=== PATIENT | male | born 1965 | race Caucasian/White ===

== ENCOUNTER 2022-03-22 14:20 | Emergency (ER) | payer BC, SELFPAY ==
[2022-03-22 14:31] VITALS: BP 137/98; PULSE 100; RESP 20; TEMP 37; O2SAT 100
--- NOTE | 2022-03-22 14:33 | ED.WOUNDLAC ---
HPI - Wound/Laceration General Chief Complaint: Wound/Laceration Stated Complaint: laceration behind right ear Time Seen by Provider: 03/22/22 14:32 Source: patient Mode of arrival: ambulatory Limitations: no limitations History of Present Illness HPI narrative: Leander is a 57-year-old male patient presenting to clinic today with complaints of a laceration behind his right ear. He reports he was having a night terror this morning and fell out of bed and hit his right ear on the corner of the night stand and this caused it to be cut. He denies any loss of consciousness or neck pain Related Data Home Medications Medication Instructions Recorded Confirmed omega-3 fatty acids 1,000 mg 1,000 mg PO DAILY 02/14/21 03/22/22 capsule (Fish Oil Concentrate) Allergies Allergy/AdvReac Type Severity Reaction Status Date / Time No Known Allergies Allergy Verified 03/22/22 14:37 Review of Systems Review of Systems: Pertinent positives per HPI. Patient denies any fever, chills, rash, headache, visual changes, dizziness, cough, runny nose, sore throat, shortness of breath, chest pain, palpitations, nausea, vomiting, diarrhea, constipation, abdominal pain, or any urinary issues. [facility] Past Medical History Medical History Anxiety FH: colonic polyps FH: diabetes mellitus Hyperlipidemia, unspecified Hypertension Family History Family History Mother Alzheimer disease Hypertension Father Alcoholism Manic depressive illness Parkinson disease Sibling Patient's brother is in good health Other Diabetes mellitus Social History Social History Smoking status: Never smoker Second hand tobacco smoke exposure: No Alcohol intake: current Drinks per week: 3 Substance use: never Substance use type: does not use Lack of Transportation: No Lack of Food: Never True Current Housing: I Have Housing Concerned About Future Housing: No Difficulty Paying Gas/Electric Bills: No Difficulty Paying for Meds: No Currently Unemployed: No Education: Bachelor's Degree Difficulty w/ Childcare or Family Care: No 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 There is no relevant family history pertinent to the patient complaint. Exam Narrative: General: Well-developed, well nourished, in no apparent distress Head: Normocephalic, atraumatic. Cardio: Regular rate and rhythm, s1 and s2 normal, no murmur appreciated. Resp: Clear to auscultation bilaterally, no rhonchi, rales, wheezing or rubs. Integumentary: [employer], warm, and dry, intact without lesion, 2 cm gaping laceration to the right posterior ear lobe. Bleeding Course Course Emergency Course: Portions of this record may have been created with voice recognition software. Level of Care: Express Care Visit Vital Signs Vital signs: Vital Signs Temperature 37.0 C 03/22/22 14:31 Pulse Rate 100 03/22/22 14:31 Respiratory Rate 20 03/22/22 14:31 Blood Pressure 137/98 H 03/22/22 14:31 Pulse Oximetry 100 03/22/22 14:31 Temperature 37.0 C 03/22/22 14:31 Pulse Rate 100 03/22/22 14:31 Respiratory Rate 20 03/22/22 14:31 Blood Pressure 137/98 H 03/22/22 14:31 Pulse Oximetry 100 03/22/22 14:31 Vital signs reviewed Discharge Plan Discharge Clinical Impression: Ear lobe laceration Patient Disposition: Home, Self-Care Condition: Stable Instructions: Antibiotic Form, Care For Your Stitches (ED), Laceration (ED) Additional Instructions: Take Keflex as prescrib
[2022-03-22] MEDS: LIDOCAINE, EPINEPHRINE, TETRACAINE VISCOUS SOLN 3 ML TOPICAL (14:36)
[2022-03-22] MEDS: TETANUS,DIPHTHERIA,AC PERTUSSIS ADULT (0.5 ML) BOOSTRIX IM (14:46)
== END 2022-03-22 15:57 | disposition home or self-care (01) ==
PROVIDERS: Emergency Provider Nurse Practitioner Family; PCP Family Medicine
DX: S01.311A Laceration without foreign body of right ear, initial encounter (principal); W06.XXXA Fall from bed, initial encounter; Z23 Encounter for immunization; E78.5 Hyperlipidemia, unspecified; I10 Essential (primary) hypertension
CPT/HCPCS: 12013; 90471; 90715; 99213; G0463

== ENCOUNTER 2022-12-13 03:34 | Emergency (ER) | payer BC, SELFPAY ==
[2022-12-13] VITALS (10 sets, daily range): BP systolic 133–160; BP diastolic 89–97; PULSE 54–65; RESP 12–23; TEMP 36.1; O2SAT 95–100
--- NOTE | ~2022-12-13 | CT_ITS ---
EXAMINATION: CT abdomen pelvis w con DATE: 12/13/2022 04:51 INDICATION: Right abdominal pain. TECHNIQUE: Computed tomography (CT) of the abdomen and pelvis was performed with 100 mL Omnipaque 350 intravenous contrast. Automated exposure control and iterative reconstruction technique were employe d. The dose-length product was 462.92 mGy-cm. COMPARISON: None. FINDINGS: The visualized portions of the lung bases demonstrate mild atelectasis. No pleural effusion . There are 5 mm and 3 mm nodules in left lower lobe, likely benign. A calcified left lung nodule is consistent with old granulomatous disease. The heart size is normal. No pericardial effusion. The juancho er demonstrates periportal edema. The gallbladder is distended and contains gallstones. Gallbladder w all thickening is noted. The spleen, pancreas, and adrenal glands are normal. There are cysts in the kidneys measuring up to 1.8 cm on the right. There is a 2 mm stone in right kidney. The prostate is m oderately enlarged. There are bilateral inguinal hernias containing fat. There are no dilated loops o f bowel. The appendix is not visualized. There are no pathologically enlarged lymph nodes. There is n o free intraperitoneal fluid. There is severe lumbar spondylosis. Lumbar levoscoliosis is noted. IMPRESSION: 1. Acute cholecystitis. Reviewed, dictated and finalized at location E. IMPRESSION: 1. Acute cholecystitis.
[2022-12-13] MEDS: SODIUM CHLORIDE 0.9% IV 1,000 ML 999 ML IV CONT (04:06)
[2022-12-13] MEDS: HYDROmorphone HCL INJ (*CRX) 1 MG/ML SYR IV PUSH (04:08)
[2022-12-13] MEDS: ONDANSETRON INJ 4 MG/2 ML VIAL IV PUSH (04:08)
[2022-12-13 04:21] LABS: Basophils Percent Auto 0.6 % (0.2-1.2); Eosinophils Absolute Auto 0.3 K/mm3 (0-0.3); Eosinophils Percent Auto 3.7 % (0-4.4); Hematocrit 45.5 % (42.0-52.0); Hemoglobin 15.5 g/dL (14.0-18.0); Immature Granulocyte Absolute 0.04 K/mm3 (0.00-0.031); Immature Granulocyte Percent A 0.6 % (0-0.5); Lymphocytes Absolute Auto 1.03 K/mm3 (0.9-3.2); Lymphocytes Percent Auto 15.3 % (18.3-44.2); Mean Corpuscular HGB Conc 34.1 g/dl (32-36); Mean Corpuscular Hemoglobin 31.9 pg (26-34); Mean Corpuscular Volume 93.6 fl (80-100); Mean Platelet Volume 12.2 fl (7.4-10.4); Monocytes Absolute Auto 0.6 K/mm3 (0.1-0.6); Monocytes Percent Auto 8.3 % (2.6-8.5); Neutrophils Absolute Auto 4.8 K/mm3 (1.3-6.7); Neutrophils Percent Auto 71.5 % (45.5-73.1); Platelet Count Result 133 k/mm3 (150-375); Red Blood Count 4.86 M/mm3 (4.6-6.20); Red Cell Distribution Width 12.1 % (11.5-14.5); White Blood Count 6.7 K/mm3 (4.5-10.0)
[2022-12-13 04:28] LABS: Alanine Aminotransferase 34 U/L (6-50); Albumin Level 4.1 g/dL (3.5-5.1); Alkaline Phosphatase 70 U/L (38-126); Anion Gap 4 mmol/L (8-16); Aspartate Amino Transferase 41 U/L (17-59); Bilirubin,Total 0.5 mg/dL (0.2-1.3); Blood Urea Nitrogen 15 mg/dL (9-20); Calcium 8.5 mg/dL (8.4-10.2); Carbon Dioxide 29 mmol/L (22-30); Chloride 101 mmol/L (98-107); Estimated CRCL calculation 79 ml/min; Estimated Glomerular Filt Rate > 60; Glucose 162 mg/dL (65-110); Lipase 41 U/L (23-300); Potassium 3.8 mmol/L (3.4-5.0); Sodium 134 mmol/L (137-145)
--- NOTE | 2022-12-13 05:03 | ED.GENADULT ---
HPI - General Adult General Chief complaint: Abdominal Pain Stated complaint: Right sided abd pain Time Seen by Provider: 12/13/22 04:00 History of Present Illness HPI narrative: Patient is a 57-year-old gentleman who presents the emergency department with chief complaint of abdominal pain. Patient reports this [facility]os and a couple beers patient reports he was feeling okay went home and woke up with severe pain in the right upper quadrant patient states the pain does radiate to the back reports has had no improvement in the symptoms. The patient reports no prior intra-abdominal surgeries Related Data Home Medications Medication Instructions Recorded Confirmed omega-3 fatty acids 1,000 mg 1,000 mg PO DAILY 02/14/21 07/31/22 capsule (Fish Oil Concentrate) Allergies Allergy/AdvReac Type Severity Reaction Status Date / Time morphine AdvReac Nausea and Verified 12/13/22 03:46 Vomiting Review of Systems Review of Systems: A 10 system review of systems was completed on the patient and is negative except for what is stated in the HPI. Nursing and ancillary documentation was reviewed. [facility] Past Medical History Medical History (Updated 12/13/22 @ 06:13 by Jose Luis Medina MD) Anxiety FH: colonic polyps FH: diabetes mellitus Hyperlipidemia, unspecified Hypertension Family History Family History Mother Alzheimer disease Hypertension Father Alcoholism Manic depressive illness Parkinson disease Sibling Patient's brother is in good health Other Diabetes mellitus Social History Social History Smoking status: Never smoker Second hand tobacco smoke exposure: No Alcohol intake: current Drinks per week: 3 Substance use: never Substance use type: does not use Lack of Transportation: No Lack of Food: Never True Current Housing: I Have Housing Concerned About Future Housing: No Difficulty Paying Gas/Electric Bills: No Difficulty Paying for Meds: No Currently Unemployed: No Education: Bachelor's Degree Difficulty w/ Childcare or Family Care: No Living arrangements: with family Occupation/Education: occupation Additional occupation/education comments: [employer] Gender identity (if verbalized by the patient): Male Spiritual care concerns: No Agree to blood products: Yes Exam Narrative: GENERAL: Well-appearing, well-nourished, and in no acute distress. HEAD: Normocephalic, atraumatic. EYES: PERRLA and EOMI. ENT: Nares clear, no rhinorrhea or epistaxis. Mucous membranes moist. NECK: Supple. CHEST: Clear to auscultation. No respiratory distress. HEART: Regular rate and rhythm. No murmur heard. Normal peripheral pulses. ABDOMEN: Soft, tenderness to palpation of the right upper quadrant nondistended, normal active bowel sounds. EXTREMITIES: Normal range of motion. No edema. SKIN: Warm, dry, no rash. NEURO: No focal deficits. Alert and oriented x3. PSYCH: Normal mood and affect. Course Vital Signs Vital signs: Vital Signs Temperature 36.1 C L 12/13/22 03:38 Pulse Rate 61 12/13/22 03:38 Respiratory Rate 19 12/13/22 03:38 Blood Pressure 160/97 H 12/13/22 03:38 Pulse Oximetry 100 12/13/22 03:38 Oxygen Delivery Room Air 12/13/22 03:38 Temperature 36.1 C L 12/13/22 03:38 Pulse Rate 61 12/13/22 05:45 Respiratory Rate 13 12/13/22 05:45 Blood Pressure 133/89 12/13/22 04:31 Pulse Oximetry 96 12/13/22 05:45 Oxygen Delivery Room Air 12/13/22 03:38 Medical Decision Making [facility] Narrative Medical decision making narrative: Differential diagnosis includes acute cholecystitis, cholelithiasis, biliary colic, appendicitis, diverticulitis, colitis CT scan of the abdomen pelvis showed evidence of thickening of th
== END 2022-12-13 06:27 | disposition home or self-care (01) ==
PROVIDERS: Emergency Provider Emergency Medicine; PCP Family Medicine
DX: K80.42 Calculus of bile duct with acute cholecystitis without obstruction (principal); I10 Essential (primary) hypertension; E78.5 Hyperlipidemia, unspecified; F41.9 Anxiety disorder, unspecified
CPT/HCPCS: 36415; 74177; 80053; 83690; 85025; 96361; 96374; 96375; 99284; J1170; J2405; J7030; Q9967

== ENCOUNTER 2023-01-04 09:34 | Outpatient (CLI) | payer BC, SELFPAY ==
--- NOTE | 2023-01-04 09:45 | ECG_ITS ---
Measurements Intervals [place] Rate: 58 P: 53 VT: 133 QRS: 35 QRSD: 112 T: 40 QT: 408 QTc: 402 Interpretive Statements SINUS BRADYCARDIA INTRAVENTRICULAR CONDUCTION DELAY BASELINE ARTIFACT- I, II, III, AVR, AVL, AVF BORDERLINE ECG NO PREVIOUS ECG AVAILABLE FOR COMPARISON Electronically Signed On 01-04-2023 13:13:11 CDT by Obinna Augustin D.O.
[2023-01-04 10:44] LABS: Alanine Aminotransferase 71 U/L (6-50); Albumin Level 4.1 g/dL (3.5-5.1); Alkaline Phosphatase 71 U/L (38-126); Amylase 125 U/L (30-110); Aspartate Amino Transferase 59 U/L (17-59); Bilirubin,Total 0.5 mg/dL (0.2-1.3); Lipase 138 U/L (23-300)
== END 2023-01-04 09:35 | disposition home or self-care (01) ==
PROVIDERS: PCP Family Medicine; Visit Provider Surgery
DX: K80.00 Calculus of gallbladder with acute cholecystitis without obstruction (principal); I10 Essential (primary) hypertension; Z01.818 Encounter for other preprocedural examination; I45.9 Conduction disorder, unspecified
CPT/HCPCS: 36415; 80076; 82150; 83690; 86850; 86900; 86901; 93005

== ENCOUNTER 2023-01-06 02:31 | Day surgery (SDC) | payer BC, SELFPAY ==
--- NOTE | 2023-01-04 08:51 | SUR.PREOP ---
Report to the Outpatient Waiting Room, entrance under the green pavilion located off [facility], at time 0830 on date 01/06/2023. Planned Procedure Time: 1030. Time changes happen often and if your time is changed the preop area will call you the afternoon before. - You and your visitor will be asked to self-screen and do not enter if you have any COVID symptoms. - A mask is optional within the hospital at this time. Patients may have clear liquids (water, carbonated beverages, clear teas, apple juice) until 3 hours prior to surgery with a maximum of 20 ounces. - NO CLEAR LIQUIDS AFTER 0730 - No food from midnight until time of surgery - Infants may have breast milk until 4 hours before surgery, infant formula 6 hours prior to surgery. - Children will be allowed to drink immediately following surgery. If applicable, please bring a bottle or sippy cup to assist with drinking. Juice, water, soda, and popsicles are readily available. For infants on formula, please bring formula the day of surgery. Pacifiers are allowed. Take the following medications with a SIP of water the morning of surgery: CLONAZEPAM, VENLAFAXINE DO NOT STOP ANY OF YOUR OTHER PRESCRIPTION MEDICATIONS PRIOR TO SURGERY ?EXCEPT THE FOLLOWING Medications to discontinue per physician STOP FISH OIL 01/04/23 Please no make-up, nail syriac, hairspray, perfume, deodorant, or body powder the day of surgery. No jewelry (including any body piercings) or valuables the day of surgery, leave them at home. Please take a shower or bath the night before, or the morning of, surgery with HIBICLENS soap. Wear comfortable, loose fitting clothing. Children are encouraged to wear pajamas. - Jewelry must be removed prior to entering the operating room. Rings and piercings that are not removed may be cut off. - The hospital will not accept responsibility for valuables. - Please leave all valuables, including medications, at home the day of surgery. If you are going home after surgery, a licensed fuel truck driver must drive you home. - NO public transportation without another adult if you receive anesthesia. - We recommend that an adult stay with you for 24 hours following discharge. - We also recommend that you do not drive, make important decision, drink alcoholic beverages, or take any drugs that were not prescribed by your health care provider for at least 24 hours after your discharge time. For Pediatric surgeries, we recommend two adults accompany the child home. Follow any additional instructions given to you from your surgeon. If you or anyone in your household have experienced Covid symptoms in the past week, please notify your surgeon or the nurse liaison at the phone number below for possible testing. Telephone instructions given to YORDY CARROLL and asked if any additional questions and then verbalized understanding. Patient advised to call surgeon office or pre surgery nurse liaison [phone] if any additional questions.
[2023-01-04 09:07] VITALS: BMI 22.4
--- NOTE | 2023-01-05 20:39 | P.PNAN_ITS ---
Anes - Initial Pre Proc Eval Procedure: Operation Date: 01/06/23 10:30 Proposed Procedures p Laparoscopic Cholecystectomy - Ray Metzger MD Date/Time: 01/05/23 20:39 Surgeon: Ray Metzger MD Pre Op Diagnosis: cholecystitis with calculous Patient Data Age: 57 Gender: M Height: 1.83 m Weight: 75 kg Allergies Allergy/AdvReac Type Severity Reaction Status Date / Time morphine AdvReac Nausea and Verified 01/04/23 08:40 Vomiting Home Medications Medication Instructions Recorded Confirmed Type omega-3 fatty acids 1,000 mg 2,000 mg PO DAILY 02/14/21 01/04/23 History capsule (Fish Oil Concentrate) clonazepam 1 mg tablet 1 mg PO BID PRN anxiety #60 tabs 12/17/22 01/04/23 Rx metoprolol succinate 25 mg 12.5 mg PO HS 01/04/23 01/04/23 History tablet,extended release 24 hr venlafaxine 150 mg 150 mg PO DAILY 01/04/23 01/04/23 History capsule,extended release 24 hr Patient hx anesthesia problems: none Family hx anesthesia problems: none Results Review: All pre-operative results and documents have been reviewed as part of the pre- operative evaluation. [facility] Past Medical History Medical History (Updated 12/31/22 @ 11:33 by Ruthann Bustamante) Anxiety FH: colonic polyps FH: diabetes mellitus Hyperlipidemia, unspecified Hypertension Surgical History Surgical History (Updated 12/31/22 @ 10:30 by Payton Ball MA) History of repair of ACL 1987 at [facility] Family History Family History Mother Alzheimer disease Hypertension Father Alcoholism Manic depressive illness Parkinson disease Sibling Patient's brother is in good health Other Diabetes mellitus Social History Social History Smoking status: Never smoker Second hand tobacco smoke exposure: No Substance use: never Substance use type: does not use Lack of Transportation: No Lack of Food: Never True Current Housing: I Have Housing Concerned About Future Housing: No Difficulty Paying Gas/Electric Bills: No Difficulty Paying for Meds: No Currently Unemployed: No Education: Bachelor's Degree Difficulty w/ Childcare or Family Care: No Living arrangements: with family Occupation/Education: occupation 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 Informed Consent: The patient's anesthetic plan and its attendant risks and benefits were discussed with the patient/family/POA. Questions were solicited and answers provided to the satisfaction of the patient/family/POA.
[2023-01-06] VITALS (8 sets, daily range): BP systolic 120–146; BP diastolic 70–94; PULSE 60–85; RESP 12–16; TEMP 36.6–36.8; O2SAT 100
--- NOTE | 2023-01-06 08:47 | WPDHPUPDATE1 ---
History and Physical Update Update Date/Time: 01/06/23 08:47 History and Physical has been reviewed, including an updated exam of the patient. There are NO changes in the patient's condition. Risks, benefits, and alternatives have been discussed and questions answered. Patient agrees to proceed with procedure.
[2023-01-06] MEDS: KETOROLAC 15 MG/ML VIAL (*BKC) IV PUSH (10:00)
[2023-01-06] MEDS: LACTATED RINGERS 1,000 ML 30 ML IV CONT ×2 (10:00→12:29)
[2023-01-06] MEDS: ACETAMINOPHEN 500 MG TABLET 1000 MG PO (10:00)
[2023-01-06] MEDS: ceFAZolin 2 GM/D5W 50 ML 2 GM/50 ML BAG IVPB (10:58)
[2023-01-06] MEDS: BUPIVACAINE/EPINEPHRINE 0.5% 50 ML VIAL INFILTRATE (11:39)
--- NOTE | 2023-01-06 12:41 | W.PM.PROC2 ---
Procedure Note - Detailed Date of Procedure 01/06/23 Pre-op Diagnosis cholecystitis with calculous Post-op Diagnosis Same Procedure Performed Laparoscopic cholecystectomy Surgeon Ray Metzger MD Threat Monitoring Analyst HAILEY Fritz Anesthesia General and Local Indications Patient had developed right upper quadrant abdominal pain that radiated through to his back after a fatty meal. He went to the emergency room and imaging showed gallstones and evidence of cholecystitis. He was seen in the office and has agreed to proceed with laparoscopic cholecystectomy. Findings Chronic inflammation and multiple gallstones, no biliary ductal dilatation, no liver abnormalities. Description of Procedure Patient was taken to surgery and induced into general anesthesia. The abdomen is prepped and draped. Local was infiltrated in the epigastric area. Incision was made and the varies needle was introduced. Saline drop technique was used and then insufflation was started. The abdomen insufflated adequately and then we placed an applied Medical optical 5 mm trocar into the abdomen. No evidence of intra-abdominal injury was seen. The remaining trocars were then placed in similar fashion but under direct visualization. The gallbladder was decompressed with a laparoscopic aspirator. It had many gallstones within it. The cholecystotomy was closed with a Vicryl endoloop. The gallbladder was then retracted anterosuperiorly. Dissection was carried out in the cholecystohepatic triangle. The cystic duct and cystic artery were carefully dissected. The gallbladder was dissected off the liver at its lower 3rd. Critical view was achieved. We then securely clipped and divided the cystic artery and cystic duct. The gallbladder was then further dissected free of its attachments to the liver. Cautery was used for hemostasis. Eventually the gallbladder was completely freed from the liver. It was placed in an Endo-Catch bag. I had had to enlarge the epigastric trocar slightly to accommodate the gallbladder with its multiple stones. Once the gallbladder was removed, we replaced the epigastric trocar and occluded the rest of the incision with a towel clip. CO2 insufflation was then able to proceed. We reviewed the gallbladder fossa and right upper quadrant. Some additional cautery was used. We irrigated the area thoroughly. All looked good with no evidence of bleeding or bile leakage. We then evacuated CO2 and removed the trocar sleeves. The fascia at the epigastric port was closed with interrupted 0 Vicryl suture. The subcutaneous was closed with 3-0 Vicryl suture. All skin wounds were closed with subcuticular 4-0 Monocryl skin suture. The wounds were dressed with Exofin surgical adhesive. Patient was then awakened and taken to recovery in good condition. Sponge and needle counts were correct x2. Estimated Blood Loss -10 Drains No Packing No Pathology Yes (Gallbladder) Complications No immediate complications Condition Stable Disposition PACU [facility] Billing Surgery - Charge Forward: Surgery Billing (Laparoscopic cholecystectomy)
[2023-01-06] MEDS: oxyCODONE HCL (*CRX) 5 MG TAB IR PO (13:38)
== END 2023-01-06 14:30 | disposition home or self-care (01) ==
PROVIDERS: PCP Family Medicine; Visit Provider Surgery
PROC: 0FT44ZZ Resection of Gallbladder, Percutaneous Endoscopic Approach (ICD-10-PCS; CPT 47562; principal; 2023-01-06 10:30)
DX: K80.10 Calculus of gallbladder with chronic cholecystitis without obstruction (principal); F41.9 Anxiety disorder, unspecified; I10 Essential (primary) hypertension; E78.5 Hyperlipidemia, unspecified
CPT/HCPCS: 47562; 88304; A9270; C1713; J0690; J1100; J1885; J2250; J2371; J2405; J3010; J7120

== ENCOUNTER 2024-05-15 02:34 | Day surgery (SDC) | payer BC, SELFPAY ==
[2024-04-28 12:28] VITALS: BMI 25.9
[2024-05-15 06:18] VITALS: BP 130/98; PULSE 80; RESP 16; TEMP 36; O2SAT 100; BMI 24.1
[2024-05-15] MEDS: LACTATED RINGERS 1,000 ML 150 ML IV CONT (06:41)
--- NOTE | 2024-05-15 07:04 | P.PNAN_ITS ---
Anes - Initial Pre Proc Eval Procedure: Operation Date: 05/15/24 07:30 Proposed Procedures p Colonoscopy - Afshin Garcia MD Date/Time: 05/15/24 07:04 Surgeon: Afshin Garcia MD Pre Op Diagnosis: family hx of diseases of digestive system Patient Data Age: 59 Gender: M Height: 1.83 m Weight: 80.8 kg Last Vital Signs Temp 36.0 C L 05/15/24 06:18 Pulse 80 05/15/24 06:18 Resp 16 05/15/24 06:18 BP 130/98 H 05/15/24 06:18 Pulse Ox 100 05/15/24 06:18 O2 Del Method Room Air 05/15/24 06:18 Allergies Allergy/AdvReac Type Severity Reaction Status Date / Time morphine AdvReac Nausea and Verified 05/15/24 06:25 Vomiting Home Medications ?Medication ?Instructions ?Recorded ?Confirmed ?Type omega-3 fatty acids 1,000 mg 2,000 mg PO DAILY 02/14/21 05/15/24 History capsule (Fish Oil Concentrate) fluticasone propionate 50 1 spray intranasal Q12H #16 grams 04/29/23 05/15/24 Rx mcg/actuation nasal spray,suspension venlafaxine 150 mg 150 mg PO DAILY #90 caps 07/09/23 05/15/24 Rx capsule,extended release 24 hr sildenafil (pulm.hypertension) 20 20 mg PO .COMPLEX #30 tabs 08/16/23 04/28/24 Rx mg tablet metoprolol succinate 25 mg 12.5 mg (1/2 x 25 mg) PO HS #90 02/10/24 05/15/24 Rx tablet,extended release 24 hr tabs escitalopram oxalate 10 mg tablet 10 mg PO DAILY 02/18/24 05/15/24 History clonazepam 1 mg tablet 1 mg PO BID PRN anxiety #60 tabs 04/17/24 05/15/24 Rx Patient hx anesthesia problems: none Family hx anesthesia problems: none Results Review: All pre-operative results and documents have been reviewed as part of the pre- operative evaluation. [facility] Past Medical History Medical History FH: cholecystectomy Chronic cholecystitis with calculus Encounter for surgical aftercare following surgery on the digestive system Acute calculous cholecystitis Influenza vaccine needed Fatigue FH: colonic polyps FH: diabetes mellitus Hyperlipidemia, unspecified Anxiety Hypertension Surgical History Surgical History History of laparoscopic cholecystectomy on 01/06/23 [place] History of repair of ACL 1987 at [facility] Family History Family History Mother Alzheimer disease Hypertension Father Alcoholism Manic depressive illness Parkinson disease Sibling Patient's brother is in good health Other Diabetes mellitus Social History Social History Smoking status: Never smoker Second hand tobacco smoke exposure: No Substance use: never Substance use type: does not use Lack of Transportation: No Lack of Food: Never True Current Housing: I Have Housing Concerned About Future Housing: No Difficulty Paying Gas/Electric Bills: No Difficulty Paying for Meds: No Currently Unemployed: No Education: Bachelor's Degree Difficulty w/ Childcare or Family Care: No Living arrangements: with family Occupation/Education: occupation 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 Informed Consent: The patient's anesthetic plan and its attendant risks and benefits were discussed with the patient/family/POA. Questions were solicited and answers provided to the satisfaction of the patient/family/POA.
--- NOTE | 2024-05-15 07:33 | PM.IMHP ---
H&P: HPI History of Present Illness Date/Time: 05/15/24 07:33 Chief Complaint: Surveillance colonoscopy Narrative: The patient has a history of colonic polyps, the last colonoscopy was 6 years ago. his grandfather had colorectal cancer. Review of Systems Review of Systems: All systems reviewed & are unremarkable except as noted in HPI and below PMFSH Past Medical History Medical History FH: cholecystectomy Chronic cholecystitis with calculus Encounter for surgical aftercare following surgery on the digestive system Acute calculous cholecystitis Influenza vaccine needed Fatigue FH: colonic polyps FH: diabetes mellitus Hyperlipidemia, unspecified Anxiety Hypertension Surgical History Surgical History History of laparoscopic cholecystectomy on 01/06/23 [facility] History of repair of ACL 1987 at [facility] Family History Family History Mother Alzheimer disease Hypertension Father Alcoholism Manic depressive illness Parkinson disease Sibling Patient's brother is in good health Other Diabetes mellitus Social History Social History Smoking status: Never smoker Second hand tobacco smoke exposure: No Substance use: never Substance use type: does not use Lack of Transportation: No Lack of Food: Never True Current Housing: I Have Housing Concerned About Future Housing: No Difficulty Paying Gas/Electric Bills: No Difficulty Paying for Meds: No Currently Unemployed: No Education: Bachelor's Degree Difficulty w/ Childcare or Family Care: No Living arrangements: with family Occupation/Education: 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 Gender identity (if verbalized by the patient): Male Spiritual care concerns: No Agree to blood products: Yes Meds Home Medications and Allergies Home Medications ?Medication ?Instructions ?Recorded ?Confirmed ?Type omega-3 fatty acids 1,000 mg 2,000 mg PO DAILY 02/14/21 05/15/24 History capsule (Fish Oil Concentrate) fluticasone propionate 50 1 spray intranasal Q12H #16 grams 04/29/23 05/15/24 Rx mcg/actuation nasal spray,suspension venlafaxine 150 mg 150 mg PO DAILY #90 caps 07/09/23 05/15/24 Rx capsule,extended release 24 hr sildenafil (pulm.hypertension) 20 20 mg PO .COMPLEX #30 tabs 08/16/23 04/28/24 Rx mg tablet metoprolol succinate 25 mg 12.5 mg (1/2 x 25 mg) PO HS #90 02/10/24 05/15/24 Rx tablet,extended release 24 hr tabs escitalopram oxalate 10 mg tablet 10 mg PO DAILY 02/18/24 05/15/24 History clonazepam 1 mg tablet 1 mg PO BID PRN anxiety #60 tabs 04/17/24 05/15/24 Rx Allergies Allergy/AdvReac Type Severity Reaction Status Date / Time morphine AdvReac Nausea and Verified 05/15/24 06:25 Vomiting Vital Signs Vital Signs - 24 hr 05/15/24 06:18 Temperature 96.8 F L Pulse Rate 80 Respiratory Rate 16 Blood Pressure 130/98 H Pulse Oximetry 100 Oxygen Delivery Room Air Exam Const: General: cooperative and healthy appearing Resp: Effort & Inspection: normal respiratory effort and able to speak in complete sentences Auscultation: clear to auscultation bilaterally Cardio: Rate: regular rate Rhythm: regular rhythm GI: Inspection: normal to inspection GI Palp: No No hepatosplenomegaly present Auscultation: normal bowel sounds Rectal Exam: deferred Skin: General skin exam: normal color Psych: Appearance: grossly normal Mental Status: mental status grossly normal Assessment and Plan Assessment and plan (1) Encounter for screening colonoscopy: Code(s): Z12.11 - Encounter for screening for malignant neoplasm of colon Status: Acute Assessment and Plan: The patient is deemed a good candidate for the procedure. Consent signed. Will proceed.
[2024-05-15 07:51] VITALS: BP 88/61; PULSE 65; RESP 16; O2SAT 96
[2024-05-15 08:01] VITALS: BP 110/83; PULSE 63; RESP 20; O2SAT 100
[2024-05-15 08:11] VITALS: BP 120/84; PULSE 62; RESP 16; O2SAT 100
--- OUTSIDE RECORDS SUMMARY | 2024-05-18 11:17 | XMS_ITS | Patient Health Summary ---
Author Organization [facility] Address [address] [place] [address] Care Team Providers Care Work Car Operator Name Role Phone Krupa Adler MD Primary Care Provider [phone] Note from [facility],non-owned Affiliates and Associated Physician Practices is amultiple site organization consisting of ambulatory clinics and hospital sitesin [place], [place], [place] and [place]. This disclosure is being madepursuant to the Care Everywhere program and may not contain all information available regarding this patient. Last updated 18.[facility] Allergies No known active allergies Medications * Be aware that medications may not be up to date on this document. Alwaysverify current medications with the patient. * clonazePAM (KLONOPIN) 0.5 MG tablet Take 0.5 mg by mouth 2 times daily * metoprolol succinate XL 24hr (TOPROL XL) 25 MG tablet Take 25 mg by mouth once daily * escitalopram (LEXAPRO) 10 MG tablet Take 10 mg by mouth once daily Social History Tobacco Use Types Packs/Day Years Used Date Smoking Tobacco: Never Sex and Gender Information Value Date Recorded Sex Assigned at Not on file Gender Identity Not on file Sexual Orientation Not on file Last Filed Vital Signs Vital Sign Reading Time Taken Comments Blood Pressure 124/88 06/24/2016 12:29 PM WIGS SALESPERSON Pulse 80 06/24/2016 12:29 PM WIGS SALESPERSON Temperature 36.8 ??C (98.2 ??F) 06/24/2016 12:[address] Respiratory Rate 16 06/24/2016 12:29 PM WIGS SALESPERSON Oxygen Saturation 98% 06/24/2016 12:29 PM WIGS SALESPERSON Inhaled Oxygen Concentration - - Weight 83.9 kg (185 lb) 06/24/2016 12:29 PM WIGS SALESPERSON Height 185.4 cm (6' 1 ) 06/24/2016 12:29 PM WIGS SALESPERSON Body Mass Index 24.41 06/24/2016 12:29 PM WIGS SALESPERSON Care Teams Work Car Operator Relationship Specialty Start Date End Date Krupa Adler MD [address] [place] [address] PCP - General Family Medicine 06/24/16
--- OUTSIDE RECORDS SUMMARY | 2024-05-18 11:17 | XMS_ITS | Clinical Summary ---
Author Organization [facility] Address [address] [place] [address] Care Team Providers Care Developer Automatic Name Role Phone Krupa Adler MD Primary Care Provider [phone] Source Comments [facility],non-owned Affiliates and Associated Physician Practices is amultiple site organization consisting of ambulatory clinics and hospital sitesin [place], [place], [place] and [place]. This disclosure is being madepursuant to the Care Everywhere program and may not contain all information available regarding this patient. Last updated 18.[email or web address] Allergies No known active allergies Medications * Be aware that medications may not be up to date on this document. Alwaysverify current medications with the patient. Medication Sig Dispensed Refills Start Date End Date Status clonazePAM (KLONOPIN) 0.5 MG tablet Take 0.5 mg by mouth 2 times daily Active metoprolol succinate XL 24hr (TOPROL XL) 25 MG tablet Take 25 mg by mouth once daily Active escitalopram (LEXAPRO) 10 MG tablet Take 10 mg by mouth once daily Active Social History Tobacco Use Types Packs/Day Years Used Date Smoking Tobacco: Never Sex and Gender Information Value Date Recorded Sex Assigned at Not on file Gender Identity Not on file Sexual Orientation Not on file Last Filed Vital Signs Vital Sign Reading Time Taken Comments Blood Pressure 124/88 06/24/2016 12:29 PM GUIDE SETTER Pulse 80 06/24/2016 12:29 PM GUIDE SETTER Temperature 36.8 ??C (98.2 ??F) 06/24/2016 12:[address] Respiratory Rate 16 06/24/2016 12:29 PM GUIDE SETTER Oxygen Saturation 98% 06/24/2016 12:29 PM GUIDE SETTER Inhaled Oxygen Concentration - - Weight 83.9 kg (185 lb) 06/24/2016 12:29 PM GUIDE SETTER Height 185.4 cm (6' 1 ) 06/24/2016 12:29 PM GUIDE SETTER Body Mass Index 24.41 06/24/2016 12:29 PM GUIDE SETTER Plan of Treatment Health Maintenance Due Date Last Done Comments COLOGUARD (AGES 45-75) - COL ON CA SCREENING 1966 COLON MONITORING 1966 COLONOSCOPY - COLON CA SCREENING 1966 CT COLONOGRAPHY - COLON CA SCREENING 1966 Colorectal Cancer Screening 1966 FIT - COLON CA SCREENING 1966 FLEX SIG - COLON CA SCREENING 1966 LIPID TESTING 1966 HIV SCREENING 1981 HEPATITIS C SCREENING 02/26/1984 DTAP/TDAP/TD VACCINES (1 - Tdap) 1985 HEPATITIS B VACCINE (1 of 3 - 19+ 3-dose series) 1985 PNEUMOCOCCAL VACCINE 50+ (1 of 1 - PCV) 2016 ZOSTER VACCINE (1 of 2) 2016 COVID-19 VACCINE (1 - 2023-2 5 season) 2023 INFLUENZA VACCINE (#1) 2023 DEPRESSION SCREENING 04/26/2024 HIB VACCINE Aged Out No longer eligi ble based on patient's age to complete this topic HPV VACCINE Aged Out No longer eligi ble based on patient's age to complete this topic MENINGOCOCCAL (Group B) VACCINE Aged Out No longer eligible based on patient's age to complete this topic MENINGOCOCCAL VACCINE Aged Out No june allison eligible based on patient's age to complete this topic PNEUMOCOCCAL VACCINE Aged Out No long er eligible based on patient's age to complete this topic Care Teams Developer Automatic Relationship Specialty Start Date End Date Krupa Adler MD [address] [place] [address] PCP - General Family Medicine 06/24/16
--- OUTSIDE RECORDS SUMMARY | 2024-05-18 11:17 | XMS_ITS | Referral Summary ---
Author Organization [facility] [employer] Address [address] [place] [address] Care Team Providers Care Human Resources Communications Manager Name Role Phone Krupa Adler MD Primary Care Provider [phone] Source Comments [facility] [employer],non-owned Affiliates and Associated Physician Practices is amultiple site organization consisting of ambulatory clinics and hospital sitesin [place], [place], [place] and [place]. This disclosure is being madepursuant to the Care Everywhere program and may not contain all information available regarding this patient. Last updated 18.[facility] [employer] Allergies No known active allergies Medications * [...] Comments Blood Pressure 124/88 06/24/2016 12:29 PM PROPERTY PRESERVATION SPECIALIST Pulse 80 06/24/2016 12:29 PM PROPERTY PRESERVATION SPECIALIST Temperature 36.8 ??C (98.2 ??F) 06/24/2016 12:[address] Respiratory Rate 16 06/24/2016 12:29 PM PROPERTY PRESERVATION SPECIALIST Oxygen Saturation 98% 06/24/2016 12:29 PM PROPERTY PRESERVATION SPECIALIST Inhaled Oxygen Concentration - - Weight 83.9 kg (185 lb) 06/24/2016 12:29 PM PROPERTY PRESERVATION SPECIALIST Height 185.4 cm (6' 1 ) 06/24/2016 12:29 PM PROPERTY PRESERVATION SPECIALIST Body Mass Index 24.41 06/24/2016 12:29 PM PROPERTY PRESERVATION SPECIALIST Plan of Treatment Not on file Care Teams Human Resources Communications Manager Relationship Specialty Start Date End Date Krupa Adler MD [address] [place] [address] PCP - General Family Medicine 06/24/16
== END 2024-05-15 08:20 | disposition home or self-care (01) ==
PROVIDERS: PCP Family Medicine; Visit Provider Internal Medicine Gastroenterology
PROC: 0DJD8ZZ Inspection of Lower Intestinal Tract, Via Natural or Artificial Opening Endoscopic (ICD-10-PCS; CPT 45378; principal; 2024-05-15 07:30)
DX: Z12.11 Encounter for screening for malignant neoplasm of colon (principal); K63.5 Polyp of colon; K64.8 Other hemorrhoids
CPT/HCPCS: 45385; 88305; J2003; J2704; J7120